=== PATIENT | female | born 1955 | race Caucasian/White ===

== ENCOUNTER 2024-12-05 07:33 | Day surgery (SDC) | payer MEDICARE ==
[~2024-12-05] VITALS: Ht 163.8 cm; Wt 72.1 kg
[~2024-12-05 07:33] MED LIST: VITA100093 PO
[2024-12-05] MEDS ORDERED: ONDANSETRON 4MG 2ML VIAL As Ordered ONE (09:05)
[2024-12-05] MEDS ORDERED: propofoL 200 MG/20 ML VIAL As Ordered ONE (09:05)
[2024-12-05] MEDS ORDERED: LIDOCAINE 2% 100MG/5ML SDV (FOR ANES.) As Ordered ONE (09:05)
[2024-12-05] MEDS ORDERED: fentaNYL 100 MCG/2 ML INJECTION As Ordered ONE (09:05)
[2024-12-05] MEDS: PHENYLEPHRINE REG/STR 0.5% NASAL SPRAY 15 ML As Ordered ONE (10:13)
[2024-12-05] MEDS: CIPRODEX OTIC SUSP 7.5ML As Ordered ONE (10:13)
[2024-12-05] MEDS ORDERED: LR 1,000 ML IV SCH (10:30)
[2024-12-05] MEDS ORDERED: fentaNYL 100 MCG/2 ML INJECTION IV PRN (10:30)
[2024-12-05] MEDS ORDERED: METOCLOPRAMIDE INJ 10MG/2ML VIAL IV PRN (10:30)
[2024-12-05] MEDS ORDERED: oxyCODONE 5MG TAB PO PRN (10:30)
[2024-12-05] MEDS ORDERED: diphenhydrAMINE 50MG/ML VIAL IV PRN (10:30)
[2024-12-05] MEDS ORDERED: ONDANSETRON 4MG 2ML VIAL IV PRN (10:30)
[2024-12-05] MEDS ORDERED: MEPERIDINE 25 MG/ML 1ML VIAL IV PRN (10:30)
[2024-12-05] MEDS ORDERED: ROCURONIUM BROMIDE 50MG/5ML VIAL As Ordered ONE (11:05)
[2024-12-05 11:25] VITALS: BP 136/72; TEMP 96.8; O2SAT 98
[2024-12-05] MEDS ORDERED: PHENYLephrine 500MCG 5ML (100MCG/ML) SYRINGE As Ordered ONE (11:52)
== END 2024-12-05 11:44 | disposition home or self-care (01) ==
LOC: M SDC 07:33
PROVIDERS: ATTEND Otolaryngology
DX: H69.90 Unspecified Eustachian tube disorder, unspecified ear (principal)
CPT/HCPCS: 69436; J1100; J2371; J2405; J3010